=== PATIENT | female | born 1945 | race Caucasian/White ===

== ENCOUNTER 2016-08-11 09:00 | Day surgery (SDC) | payer MEDICARE, OTHER ==
--- NOTE | 2016-08-02 18:11 | HP ---
HISTORY AND PHYSICAL: DATE OF ADMISSION: DATE OF SURGERY: 08/11/16 PATIENT OF: Dominga Razo MD (DICTATED BY ESAU ADAMS) CHIEF COMPLAINT: Hyperparathyroidism. HISTORY OF PRESENT ILLNESS: Ms. Ng is a pleasant 70-year-old female, who was seen in the office initially about a month ago to discuss her known hyperparathyroidism. The patient apparently has a known history of hypercalcemia for the past few years, which has been followed by Dr. Jt Chaves, her yoke presser due to primary hyperparathyroidism. The patient has been routinely monitored her calcium on a regular basis as well as getting a DEXA scan every 2 years. The patient had absolutely no symptoms until recently when she was found to have occasional bone aches and pains as well as changes in bone density on her DEXA scans. She also noted having kidney stones; however, she denies passing any kidney stones recently or flank pain in the past few weeks. Given her known history of hypercalcemia, which is secondary to hyperparathyroidism the patient was sent to us for evaluation and to discuss possible surgery. She notes an increased irritability in recent years, but described herself as having a baseline of high anxiety, but does not bother her so much. She also noticed more fatigue in the recent years, but denies any melena, chest pain, shortness of breath, or any other associated symptoms. She also denies any history of radiation to the head or neck or any other familiar endocrinopathies. Given her ongoing symptoms of hypercalcemia recently, she was encouraged by Dr. Chaves to pursue surgery for correction of her calcium. She otherwise is a relatively healthy 70 years old with active lifestyle, who still works as a psychologist in the local area. PAST MEDICAL HISTORY: Significant for hypertension, hypercholesteremia for which it has been diet controlled with good HDL. She also has history of asthma , back in 2001 had a respiratory function test that was borderline. She also has a history of peripheral vascular disease with some angina pain with cardiology evaluation back in 2002 that turned out to be negative stress test. She also has a history of hypercalcemia since 2012, that was monitored and evaluated by Dr. Chaves and the patient apparently get a DEXA scan every 2 years to check her bone density. She also has a history of osteopenia related to hyperparathyroidism. PAST SURGICAL HISTORY: Significant for partial hysterectomy back in 1994 as well as oophorectomy in 1999 for benign ovarian cyst. CURRENT MEDICATIONS: Her medications at home include; 1. Amlodipine 2.5 mg once daily. 2. Econazole nitrate 1% topical cream twice a day at affected site. 3. Macrobid 100 mg 1 tab twice a day x7 days as needed for UTI symptoms. 4. Melatonin ER 10 mg once q.h.s. 5. Probiotic 1 by mouth every day. 6. Vitamin D3 1000 units by mouth once daily. 7. Vitamin B complex 1 by mouth q. daily. ALLERGIES: She is allergic to SULFA antibiotics. FAMILY HISTORY: She denies any family history of thyroid gland or parathyroid gland disease. SOCIAL HISTORY: The patient is very active. She still works as a psychologist in [employer]. She never smoked and she consumes alcohol occasionally. She denies illicit drug use. REVIEW OF SYSTEMS: See HPI, otherwise negative. She denies any headache, dizziness, blurred vision or syncope. No dysphagia, thyroid swelling, difficulty swallowing or painful swallowing. She denies any chest pain, shortness of breath, cough, wheezing. No flank pain, dysuria, hematuria or urinary frequency. She denies any abdominal pain, nausea, vomiting, changes in the bowel habits or dark stools. No fever, chills, night sweats or recent weight loss. PHYSICAL EXAMINATION GENERAL: She is a pleasant slim, healthy-appearing elderly female, in no acute distress or discomfort at the time of consultation. VITAL SIGNS: Her vitals revealed a blood pressure of 128/70, temperature of 98.2, pulse of 68, respirations of 16. HEENT: Sclerae anicteric. PERRLA. EOMs intact. Oropharynx is pink and moist with no exudates. NECK: Supple. Trachea midline. No cervical adenopathy, thyromegaly or JVD. No cervical or supraclavicular lymphadenopathy noted. Trachea is midline. LUNGS: Clear to auscultation bilaterally. No rales, wheezes or rhonchi noted. HEART: Regular rate and rhythm. Normal S1 and S2 without rubs, murmurs or gallops. BREASTS: Exam deferred at this time. BACK: Normal curvature. No CVA tenderness. ABDOMEN: Soft, nontender, nondistended. No hernias, masses or hepatosplenomegaly. No guarding, rigidity, or rebound tenderness. NEUROLOGIC: Grossly intact. EXTREMITIES: Without cyanosis, clubbing or edema. RECTAL: Exam deferred at this time. ASSESSMENT: A 70-year-old female with longstanding history of hypercalcemia secondary to hyperparathyroidism, who was seen in the office today to discuss parathyroidectomy. PLAN: We discussed with the patient proceeding with surgery today. She seems to be well informed and wishes to proceed with surgery as outlined. The rationale indications, risks and benefits of performing a parathyroidectomy were discussed with her today. Risks include, but not limited to infection, bleeding, or injury to the adjacent structures. She seems to understand the risks and wishes to proceed as outlined. Given her history of peripheral vascular disease and hypertension, we will obtain a baseline EKG and blood work. The patient was already seen by her primary care physician as well as Dr. Jt Chaves, her yoke presser for evaluation. She is scheduled for a parathyroidectomy by Dr. Razo, to be performed on 08/11/16 and we will follow her up accordingly. ESAU ADAMS CC: Goergina Love MD; Jt Chaves MD * [id number]/[facility] #: [id number] [facility]ASSETT HOSPITALArlene
[~2016-08-11 09:00] MED LIST: Famotidine IV* 10 MG/ML 2 ML (20 mg) IV ONE
[2016-08-11] MEDS ORDERED: ceFAZolin 2 GM PREMIX(*) 2 GM/50 ML BAG IVPB ONE (09:11)
[2016-08-11] MEDS ORDERED: Buffered Lidocaine 0.9% SYRIN* 5 ML/SYR SYRINGE ONE (09:11)
[2016-08-11] MEDS ORDERED: Famotidine IV* 10 MG/ML 2 ML (20 mg) ONE (09:11)
[2016-08-11] MEDS ORDERED: KETAMINE HCL* 50 MG/ML 10 ML VIAL ONE (09:24)
[2016-08-11] MEDS ORDERED: Atracurium* 10 MG/ML 10 ML VIAL ONE (09:24)
[2016-08-11] MEDS ORDERED: Midazolam* 1 MG/ML 5 ML VIAL (5 MG) ONE (09:24)
[2016-08-11] MEDS ORDERED: fentaNYL* 50 MCG/ML 2 ML VIAL (100 MCG VIAL) ONE ×2 (09:24→12:56)
[2016-08-11] MEDS ORDERED: PROCHLORPERAZINE INJ 5 MG/ML 2 ML VIAL IV PRN (09:30)
[2016-08-11] MEDS ORDERED: Morphine INJ* 2 MG/ML 1 ML SYRINGE IV PRN (09:30)
[2016-08-11] MEDS ORDERED: fentaNYL* 50 MCG/ML 2 ML VIAL (100 MCG VIAL) IV PRN (09:30)
[2016-08-11] MEDS ORDERED: Bupivacaine 0.25% W/EPI* 50 ML VIAL ONE (09:49)
[2016-08-11 10:20] LABS: Calcium (PTH Intact) 10.9 mg/dL (8.6-10.3)
[2016-08-11] MEDS ORDERED: EPHEDrine (Pressors)* 50 MG/ML VIAL ONE (10:29)
[2016-08-11] MEDS ORDERED: Glycopyrrolate IV* 0.2 MG/ML 1 ML VIAL ONE (10:29)
[2016-08-11] MEDS ORDERED: Propofol* 10 MG/ML 20 ML BTL IV PUSH ONE (10:37)
[2016-08-11] MEDS ORDERED: Lidocaine 2% PF * 5 ML VIAL ONE (10:37)
[2016-08-11] MEDS ORDERED: Ondansetron INJ* 2 MG/ML VIAL ONE (10:37)
[2016-08-11] MEDS ORDERED: Dexamethasone IV* 4 MG/ML 1 ML (4 MG) ONE (10:37)
[2016-08-11 12:05] LABS: Calcium (PTH Intact) 9.9 mg/dL (8.6-10.3)
[2016-08-11] MEDS ORDERED: oxyCODONE/Acetamin 5/325 MG* TAB PO PRN (12:11)
--- NOTE | 2016-08-11 12:20 | SURGPN ---
Brief Operative Note - Surgery Procedures: Procedures CLOSED ENDOSCOPIC BIOPSY OF LARGE INTESTINE (04/18/13) COLONOSCOPY (01/02/03) 08/11/16 Op Note Pre-op dx: hyperparathyroidism Post-op dx: same Procedure: parathyroidectomy Surgeon: Dung Asst: Shanice Anesth: General EBL: 2 cc complications: none SCDs on during surgery Abx: given pre-op Pt. tolerated procedure well and was transferred to in a stable condition. CLFoster
[2016-08-11] MEDS ORDERED: oxyCODONE/Acetamin 5/325 MG* TAB ONE (12:55)
[2016-08-11] MEDS ORDERED: PROCHLORPERAZINE INJ 5 MG/ML 2 ML VIAL ONE (12:56)
[2016-08-11] MEDS: oxyCODONE/Acetamin 5/325 MG* TAB PO PRN ×2 (13:01→13:02)
[2016-08-11 15:19] VITALS: BP 123/73
--- NOTE | 2016-08-11 23:28 | OP ---
CC: [facility]; Dr. Jt Chaves; Dr. Georgina Love OPERATIVE SUMMARY: DATE OF OPERATION: 08/11/16 DATE OF : 45 SURGEON: Dominga Razo MD MONUMENT SETTER: ESAU Dickens PRE-OP DIAGNOSIS: Hyperparathyroidism. POST-OP DIAGNOSIS: Hyperparathyroidism. OPERATIVE PROCEDURE: Parathyroidectomy. INDICATIONS: Ms. Ng is a 71-year-old woman who presented to the office with symptomatic hyperpara thyroidism prompting the plan for surgical intervention. Preoperative imaging identified the left lo wer pole parathyroidism most likely candidate for her symptoms. So, plans were made for surgical in tervention. DESCRIPTION OF PROCEDURE: She was brought to the operating room, placed on the OR table in the supi ne position and given general anesthesia. The neck was prepped and draped in the usual sterile fash ion. After infiltrating with local anesthetic, an incision was made along the line that was marked preoperatively. Subcutaneous tissue was divided with electrocautery down through the platysma muscl e and then flaps were developed superiorly to the thyroid notch and inferiorly to the sternal notch. The strap muscles were then divided along the midline and retracted laterally over the left lobe o f the thyroid gland. The thyroid gland itself was exposed and cleared of attachments to the muscle and retracted medially. This almost immediately exposed an abnormal parathyroid gland in the region of the left lower pole. This was dissected free from surrounding tissue, using clips to control th e small blood vessels that approached the gland and it was handed off as a specimen. It should be m entioned that preoperative PTH was obtained before surgery and was 10.6, that was a rapid PTH. The intact PTH was 9.6 and preoperative calcium was 10.9. The rapid intraoperative PTH came back at les s than 6, so an intact standard PTH was sent and at the time, the decision was made to close, the nu mbers were not back yet. The closure was accomplished after irrigating the wound with saline and 3- 0 Polysorb was used to close the strap muscles, 4-0 Polysorb was used to reapproximate the platysma muscle and the skin was closed with 4-0 Surgipro in a subcuticular fashion. Steri-Strips and a dry sterile dressing were applied. She tolerated the procedure well and was transferred to Recovery in stable condition. [id number]/[facility] #: [id number]
== END 2016-08-11 15:25 | disposition home or self-care (01) ==
LOC: OR 09:00
PROVIDERS: ATTEND Surgery
DX: E21.0 Primary hyperparathyroidism (principal); D35.1 Benign neoplasm of parathyroid gland; I10 Essential (primary) hypertension; E78.00 Pure hypercholesterolemia, unspecified
CPT/HCPCS: 36415; 83970; 88305; A9270-GY; J0690; J0780; J1100; J2250; J2405; J2704; J3010

== ENCOUNTER 2020-06-03 08:49 | Observation (INO) ==
[~2020-06-03 08:49] MED LIST changes: +Buffered Lidocaine 1% SYRIN 1 ml INTRADERM ONE; +Famotidine IV 10 MG/ML 2 ml VIAL (20 mg) IV ONE; -Famotidine IV* 10 MG/ML 2 ML (20 mg) IV ONE; +Lactated Ringers 1000 ml BAG 1,000 ML IV SCH
[2020-06-03] MEDS ORDERED: ceFAZolin 2 GM PREMIX 2 GM/50 ML BAG ONE (09:13)
[2020-06-03] MEDS ORDERED: Famotidine IV 10 MG/ML 2 ml VIAL (20 mg) ONE (09:13)
[2020-06-03] MEDS ORDERED: Phenylephrine IV 10 MG/ML 1 ml VIAL ONE (09:19)
[2020-06-03] MEDS ORDERED: fentaNYL 100 mcg/2 ml 50 MCG/ML VIAL ONE ×2 (09:20→15:10)
[2020-06-03] MEDS ORDERED: Midazolam 2 mg/2 ml VIAL 1 mg/ml 2 ml VIAL (2 mg) ONE (11:36)
[2020-06-03] MEDS ORDERED: Rocuronium 50 mg VIAL 10 mg/ml 5 ml VIAL (50 mg) ONE ×2 (11:36→12:55)
[2020-06-03] MEDS ORDERED: ROPIVACAINE 5 MG/ML 30 ML BTL (0.5%) ONE (12:07)
[2020-06-03] MEDS ORDERED: Ketamine HCL 50 mg/ml 10 ml VIAL (500 MG) ONE (12:40)
[2020-06-03] MEDS ORDERED: Naloxone 0.4 mg VIAL 0.4 mg/ml 1 ml VIAL IV PRN (13:06)
[2020-06-03] MEDS ORDERED: fentaNYL 100 mcg/2 ml 50 MCG/ML VIAL IV PRN (13:06)
[2020-06-03] MEDS ORDERED: diPHENhydraMINE IV 50 MG/ML 1 ml VIAL (BENADRYL) IV PRN ×2 (13:06→14:56)
[2020-06-03] MEDS ORDERED: DiMENhydriNATE IV 50 mg/ml 1 ml VIAL IV PUSH PRN (13:06)
[2020-06-03] MEDS ORDERED: Ondansetron 4 mg VIAL 2 MG/ML 2 ml VIAL IV PRN ×2 (13:06→14:56)
[2020-06-03] MEDS ORDERED: Dexamethasone IV 4 MG/ML VIAL 1 ml VIAL ONE (13:07)
[2020-06-03] MEDS ORDERED: Dexmedetomidine 200 mcg/2 ml 2 ml VIAL (200 mcg) ONE (13:23)
[2020-06-03] MEDS ORDERED: Propofol 10 MG/ML 20 ML BTL ONE (13:39)
[2020-06-03] MEDS ORDERED: Acetaminophen IV 1 GM/100ML 100 ML ONE (13:54)
[2020-06-03] MEDS ORDERED: EPHEDrine (Pressors) 50 MG/ML VIAL ONE (14:05)
[2020-06-03] MEDS ORDERED: Ondansetron 4 mg VIAL 2 MG/ML 2 ml VIAL ONE ×2 (14:20→15:10)
[2020-06-03] MEDS ORDERED: DiMENhydriNATE IV 50 mg/ml 1 ml VIAL ONE (14:20)
[2020-06-03] MEDS ORDERED: diPHENhydraMINE 25 mg TAB PO PRN (14:56)
[2020-06-03] MEDS ORDERED: Ondansetron ODT 4 mg TAB 4 MG TAB PO PRN (14:56)
[2020-06-03] MEDS ORDERED: Lactulose 30 ml UDC PO PRN (14:56)
[2020-06-03] MEDS ORDERED: Magnesium Hydroxide LIQ 30 ML UDC PO PRN (14:56)
[2020-06-03] MEDS: Lactated Ringers 1000 ml BAG 1,000 ML IV SCH (16:42)
[2020-06-03] MEDS: Magnesium Hydroxide LIQ 30 ML UDC PO SCH (22:10)
[2020-06-03] MEDS: ceFAZolin 1 GM ADVAN 1 GM in NS 0.9% 50 ML 50 ML IVPB SCH (22:13)
[2020-06-04] MEDS: Lactated Ringers 1000 ml BAG 1,000 ML IV SCH (03:14)
[2020-06-04] MEDS: ceFAZolin 1 GM ADVAN 1 GM in NS 0.9% 50 ML 50 ML IVPB SCH ×2 (06:08→12:36)
[2020-06-04 07:04] LABS: Hematocrit 25 % (35-47); Hemoglobin 8.8 g/dL (12.0-16.0); Mean Platelet Volume 9.7 fL (7.4-10.4); Platelet Count 176 10^3/uL (150-450)
[2020-06-04 07:15] LABS: BUN/Creatinine Ratio 18.4 (8-20); Calcium 9.2 mg/dL (8.6-10.3); EGFR Non-African American 74.4 (>60); Potassium 3.4 mmol/L (3.5-5.0)
[2020-06-04] MEDS: Magnesium Hydroxide LIQ 30 ML UDC PO SCH (08:18)
[2020-06-04] MEDS ORDERED: Vitamin THERAPEUTIC TAB PO SCH (09:00)
[2020-06-04 11:32] VITALS: BP 144/75
[2020-06-04] MEDS ORDERED: Potassium Chlor 20 meq TAB.ER PO ONE (12:18)
== END 2020-06-04 13:30 | disposition home or self-care (01) ==
LOC: OR 08:49 → SSU 08:49
PROVIDERS: ADMIT Orthopaedic Surgery Adult Reconstructive Orthopaedic Surgery; ATTEND Orthopaedic Surgery Adult Reconstructive Orthopaedic Surgery